=== PATIENT | female | born 1960 | race Caucasian/White ===

== ENCOUNTER 2016-09-15 10:26 | Emergency (ER) | payer OTHER ==
[~2016-09-15] VITALS: Ht 157.5 cm; Wt 60.0 kg
[2016-09-15] MEDS ORDERED: LISI-167 PO (10:37)
[2016-09-15] MEDS ORDERED: LEVO75TA5 PO (10:40)
[2016-09-15] MEDS ORDERED: ZOLP10TA5 PO (10:40)
[2016-09-15 11:52] VITALS: BP 100/64
[2016-09-15 11:59] LABS: ASPARTATE AMINO TRANSFERASE 17 U/L (15-37); BLOOD UREA NITROGEN 23 mg/dL (7-18)
== END 2016-09-15 13:00 | disposition home or self-care (01) ==
LOC: ED 11:48
DX: R41.0 Disorientation, unspecified (principal); I10 Essential (primary) hypertension
CPT/HCPCS: 36415; 70450; 80053; 80307; 81003; 82140; 85025; 93005